=== PATIENT | male | born 1980 | race Two or more races ===

== ENCOUNTER 2023-01-21 06:23 | Emergency (ER) | payer OTHER ==
[~2023-01-21] VITALS: Ht 170.2 cm; Wt 144.7 kg
== END 2023-01-21 09:50 | disposition home or self-care (01) ==
LOC: ER 06:23
DX: S05.12XA Contusion of eyeball and orbital tissues, left eye, initial encounter (principal); S13.9XXA Sprain of joints and ligaments of unspecified parts of neck, initial encounter; Y09 Assault by unspecified means; Y93.9 Activity, unspecified; Y92.511 Restaurant or cafe as the place of occurrence of the external cause; Y99.9 Unspecified external cause status